=== PATIENT | female | born 1945 | race Caucasian/White ===

== ENCOUNTER 2022-02-13 07:35 | Day surgery (SDC) | payer OTHER, MEDICARE ==
[2022-02-06 15:47] VITALS: BMI 22.8
[2022-02-13] MEDS ORDERED: PROPOFOL 20 ML ONE ×4 (07:48→07:49)
[2022-02-13] MEDS ORDERED: LIDOCAINE HCL/PF 2% SDV 5ML VIAL ONE (07:48)
[2022-02-13 08:06] VITALS: TEMP 97.5
[2022-02-13 09:24] VITALS: BP 124/72; PULSE 75
== END 2022-02-13 09:15 | disposition home or self-care (01) ==
LOC: FASU-ENDO 07:35
PROVIDERS: ATTEND Internal Medicine Gastroenterology
PROC: 0DJD8ZZ Inspection of Lower Intestinal Tract, Via Natural or Artificial Opening Endoscopic (ICD-10-PCS; principal; 2022-02-13 08:18)
DX: Z12.11 Encounter for screening for malignant neoplasm of colon (principal); K57.30 Diverticulosis of large intestine without perforation or abscess without bleeding